=== PATIENT | female | born 1960 | race Caucasian/White ===

== ENCOUNTER 2017-04-14 06:41 | Day surgery (SDC) | payer OTHER ==
[~2017-04-14] VITALS: Ht 160 cm; Wt 96.6 kg
[~2017-04-14 06:41] MED LIST: BACTRIM DS1 TAB PO; DENIES CURRENT MEDS; LORTAB 1010 MG PO; ROCEPHIN1 G1 IJ
[2017-04-14] MEDS ORDERED: NORCO1 TA1 PO (09:21)
[2017-04-14 10:10] VITALS: BP 130/78
== END 2017-04-14 10:00 | disposition home or self-care (01) | DRG 745 ==
LOC: ORM 06:41
PROC: 0UDB7ZX Extraction of Endometrium, Via Natural or Artificial Opening, Diagnostic (ICD-10-PCS; principal; 2017-04-14)
PROC: 0UBC7ZX Excision of Cervix, Via Natural or Artificial Opening, Diagnostic (ICD-10-PCS; 2017-04-14)
DX: N92.1 Excessive and frequent menstruation with irregular cycle (principal); F17.210 Nicotine dependence, cigarettes, uncomplicated; N84.1 Polyp of cervix uteri; N93.8 Other specified abnormal uterine and vaginal bleeding; K08.109 Complete loss of teeth, unspecified cause, unspecified class; Z88.0 Allergy status to penicillin

== ENCOUNTER 2022-11-24 12:15 | Day surgery (SDC) | payer BC ==
[~2022-11-24] VITALS: Ht 160 cm; Wt 74.8 kg
[~2022-11-24 12:15] MED LIST changes: +ATORVASTATIN CA20 MG PO; +FARXIGA10 MG PO; +METFORMIN500 M2 PO; +NORCO1 TA1 PO; +RYBELSUS14 MG PO
[2022-11-24 14:52] VITALS: BP 145/72
== END 2022-11-24 15:00 | disposition home or self-care (01) | DRG 581 ==
LOC: ORM 12:15
PROVIDERS: ATTEND Surgery
PROC: 0JH63WZ Insertion of Totally Implantable Vascular Access Device into Chest Subcutaneous Tissue and Fascia, Percutaneous Approach (ICD-10-PCS; principal; 2022-11-24)
PROC: 02HV33Z Insertion of Infusion Device into Superior Vena Cava, Percutaneous Approach (ICD-10-PCS; 2022-11-24)
PROC: B518ZZA Fluoroscopy of Superior Vena Cava, Guidance (ICD-10-PCS; 2022-11-24)
DX: C50.411 Malignant neoplasm of upper-outer quadrant of right female breast (principal); Z17.1 Estrogen receptor negative status [ER-]

== ENCOUNTER 2023-03-04 13:51 | Emergency (ER) | payer BC ==
[~2023-03-04] VITALS: Ht 160 cm; Wt 75.7 kg
[2023-03-04] VITALS (19 sets, daily range): BP systolic 114–148; BP diastolic 65–91
[2023-03-04] MEDS ORDERED: GABAPENTIN100 MG PO (14:09)
[2023-03-04] MEDS ORDERED: DEXAMETHASON1 MG PO (14:10)
[2023-03-04 14:21] LABS: GFR FOR AFR.AMER. > 60 ML/MIN (>=60 (CALC)); GFR OTHER RACES > 60 ML/MIN (>=60 (CALC))
[2023-03-04 14:26] LABS: EOS% 0.5 % (0-8); IMMATURE GRANULOCYTES 0.5 % (0.0-5.0); MEAN CORPUSCULAR HGB 33.7 pG CALC (26.0-32.0); MEAN CORPUSCULAR HGB CONC 34.2 g/dL CAL (32.0-36.0); MONO% 18.6 % (2-13); NEUT# 0.72 thou/uL (2.00-7.15); NEUT% 32.4 % (42-76); RED BLOOD COUNT 3.65 mill/uL (4.20-5.60); RED CELL DISTRI WIDTH 15.8 % (11.5-15.5)
[2023-03-04 14:29] LABS: HEMOGLOBIN 12.3 g/dl (12.0-16.0)
[2023-03-04 14:30] LABS: MEAN CELL VOLUME 98.6 fL CALC (80.0-100.0)
[2023-03-04 14:34] LABS: BUN 21 mg/dL (8-23); BUN/CREATININE RATIO 31 (12-20 (CALC)); CHLORIDE 104 mmol/l (95-108); CREATININE 0.7 mg/dL (0.5-1.0); GFR FOR AFR.AMER. > 60 ML/MIN (>=60 (CALC)); GFR OTHER RACES > 60 ML/MIN (>=60 (CALC)); POTASSIUM 4.1 mmol/l (3.5-5.1); SODIUM 138 mmol/l (137-146); TOTAL PROTEIN 6.7 g/dL (6.3-8.2)
[2023-03-04 14:41] LABS: ALBUMIN 4.1 g/dL (3.2-5.0); ALKALINE PHOSPHATASE 60 u/l (38-126); ANION GAP 19 (6-22 (CALC)); BILIRUBIN, TOTAL 0.3 mg/dL (0.02-1.3); CARBON DIOXIDE 19 mmol/l (22-30); SGOT/AST 40 u/l (9-36)
[2023-03-04 14:50] LABS: ETHYL ALCOHOL 0 mg/dl (0-30)
== END 2023-03-04 19:35 | disposition left against medical advice (07) | DRG 313 ==
LOC: ED 13:51 → ED-I 17:10 → ED 19:35
PROVIDERS: Family Medicine
DX: R07.89 Other chest pain (principal); M54.6 Pain in thoracic spine; M54.50 Low back pain, unspecified; M25.551 Pain in right hip; E11.9 Type 2 diabetes mellitus without complications; C50.911 Malignant neoplasm of unspecified site of right female breast; I10 Essential (primary) hypertension; F17.200 Nicotine dependence, unspecified, uncomplicated; Z79.84 Long term (current) use of oral hypoglycemic drugs; Z53.29 Procedure and treatment not carried out because of patient's decision for other reasons; Z79.899 Other long term (current) drug therapy
CPT/HCPCS: Q9967

== ENCOUNTER 2023-03-11 08:41 | Observation (INO) | payer BC ==
[~2023-03-11] VITALS: Ht 160 cm; Wt 72.0 kg
[2023-03-11] VITALS (31 sets, daily range): BP systolic 118–161; BP diastolic 67–96
[~2023-03-11 08:41] MED LIST changes: +DEXAMETHASON1 MG PO; +GABAPENTIN100 MG PO
[2023-03-11] MEDS ORDERED: FAMOTIDINE20 M1 PO (09:26)
[2023-03-11] MEDS ORDERED: DEXAMETHASON1 MG PO (09:27)
[2023-03-11 10:10] LABS: BASO% 0.4 % (0-3); HEMOGLOBIN 11.9 g/dl (12.0-16.0); IMMATURE GRANULOCYTES 1.9 % (0.0-5.0); LYMPH% 1.7 % (15-41); MEAN CELL VOLUME 99.7 fL CALC (80.0-100.0); MEAN CORPUSCULAR HGB 33.9 pG CALC (26.0-32.0); MONO% 2.1 % (2-13); NEUT# 14.47 thou/uL (2.00-7.15); NEUT% 93.9 % (42-76); RED BLOOD COUNT 3.51 mill/uL (4.20-5.60); RED CELL DISTRI WIDTH 15.5 % (11.5-15.5)
[2023-03-11 10:16] LABS: ALBUMIN 3.6 g/dL (3.2-5.0); ALKALINE PHOSPHATASE 87 u/l (38-126); ANION GAP 17 (6-22 (CALC)); BUN 32 mg/dL (8-23); BUN/CREATININE RATIO 54 (12-20 (CALC)); CARBON DIOXIDE 20 mmol/l (22-30); CHLORIDE 101 mmol/l (95-108); CREATININE 0.6 mg/dL (0.5-1.0); GFR FOR AFR.AMER. > 60 ML/MIN (>=60 (CALC)); GFR OTHER RACES > 60 ML/MIN (>=60 (CALC)); POTASSIUM 4.6 mmol/l (3.5-5.1); SGOT/AST 34 u/l (9-36); SODIUM 133 mmol/l (137-146); TOTAL PROTEIN 5.8 g/dL (6.3-8.2)
[2023-03-11 10:24] LABS: BILIRUBIN, TOTAL 0.6 mg/dL (0.02-1.3)
[2023-03-11 11:53] LABS: URINE BILIRUBIN - DIPSTICK NEGATIVE (NEGATIVE); URINE BLOOD DIPSTICK NEGATIVE (NEGATIVE); URINE COLOR YELLOW; URINE GLUCOSE - DIPSTICK >=1000 mg/dL (NEGATIVE); URINE KETONE TRACE mg/dL (NEGATIVE); URINE LEUK ESTERASE NEGATIVE (NEGATIVE); URINE PH 5.5 (4.5-8.0); URINE PROTEIN - DIPSTICK NEGATIVE (NEG-TRACE); URINE UROBILINOGEN - DIPSTICK 0.2 E.U./dL (0.2)
[2023-03-11 11:55] LABS: URINE NITRITE - DIPSTICK NEGATIVE (Negative)
[2023-03-11] MEDS ORDERED: DOXORUBICIN IV (16:57)
[2023-03-11] MEDS ORDERED: CYCLOPHOSPHAMIDE XX (16:58)
[2023-03-12] VITALS (7 sets, daily range): BP systolic 125–142; BP diastolic 63–79
[2023-03-12 09:43] LABS: BASO% 0.1 % (0-3); HEMATOCRIT 29.9 % (37.0-47.0); HEMOGLOBIN 10.1 g/dl (12.0-16.0); IMMATURE GRANULOCYTES 0.4 % (0.0-5.0); LYMPH% 2.1 % (15-41); MEAN CORPUSCULAR HGB 33.8 pG CALC (26.0-32.0); MEAN CORPUSCULAR HGB CONC 33.8 g/dL CAL (32.0-36.0); MONO% 1.2 % (2-13); NEUT# 14.98 thou/uL (2.00-7.15); NEUT% 96.2 % (42-76); RED BLOOD COUNT 2.99 mill/uL (4.20-5.60); RED CELL DISTRI WIDTH 15.4 % (11.5-15.5)
[2023-03-12 09:53] LABS: ALBUMIN 2.9 g/dL (3.2-5.0); ALKALINE PHOSPHATASE 45 u/l (38-126); ANION GAP 8 (6-22 (CALC)); BUN 28 mg/dL (8-23); BUN/CREATININE RATIO 50 (12-20 (CALC)); CARBON DIOXIDE 21 mmol/l (22-30); CHLORIDE 107 mmol/l (95-108); CREATININE 0.6 mg/dL (0.5-1.0); GFR FOR AFR.AMER. > 60 ML/MIN (>=60 (CALC)); GFR OTHER RACES > 60 ML/MIN (>=60 (CALC)); MAGNESIUM 1.9 mg/dL (1.6-2.3); POTASSIUM 4.2 mmol/l (3.5-5.1); SGOT/AST 22 u/l (9-36); SODIUM 132 mmol/l (137-146); TOTAL PROTEIN 4.8 g/dL (6.3-8.2)
[2023-03-12 09:55] LABS: BILIRUBIN, TOTAL 0.3 mg/dL (0.02-1.3)
[2023-03-13 00:04] VITALS: BP 126/71
[2023-03-13 04:15] VITALS: BP 146/79
[2023-03-13 04:39] VITALS: BP 146/79
[2023-03-13 05:09] LABS: BASO% 0.3 % (0-3); HEMATOCRIT 30.7 % (37.0-47.0); HEMOGLOBIN 10.4 g/dl (12.0-16.0); IMMATURE GRANULOCYTES 0.2 % (0.0-5.0); LYMPH% 3.1 % (15-41); MEAN CORPUSCULAR HGB 34.2 pG CALC (26.0-32.0); MEAN CORPUSCULAR HGB CONC 33.9 g/dL CAL (32.0-36.0); MONO% 0.9 % (2-13); NEUT# 11.98 thou/uL (2.00-7.15); NEUT% 95.5 % (42-76); RED BLOOD COUNT 3.04 mill/uL (4.20-5.60); RED CELL DISTRI WIDTH 15.2 % (11.5-15.5)
[2023-03-13 05:19] LABS: ANION GAP 9 (6-22 (CALC)); BUN 33 mg/dL (8-23); BUN/CREATININE RATIO 61 (12-20 (CALC)); CARBON DIOXIDE 22 mmol/l (22-30); CHLORIDE 108 mmol/l (95-108); CREATININE 0.5 mg/dL (0.5-1.0); GFR FOR AFR.AMER. > 60 ML/MIN (>=60 (CALC)); GFR OTHER RACES > 60 ML/MIN (>=60 (CALC)); MAGNESIUM 1.9 mg/dL (1.6-2.3); POTASSIUM 3.9 mmol/l (3.5-5.1); SODIUM 135 mmol/l (137-146)
[2023-03-13 07:22] VITALS: BP 145/71
[2023-03-13] MEDS ORDERED: LEVEMIR100 UNIT SC (10:22)
== END 2023-03-13 12:05 | disposition home or self-care (01) | DRG 639 ==
LOC: ED 08:41 → ED-I 12:24 → ED 12:37 → MS2 12:38
PROVIDERS: Family Medicine; Internal Medicine; ADMIT Internal Medicine; ATTEND Internal Medicine
DX: E11.10 Type 2 diabetes mellitus with ketoacidosis without coma (principal); E11.00 Type 2 diabetes mellitus with hyperosmolarity without nonketotic hyperglycemic-hyperosmolar coma (NKHHC); E86.0 Dehydration; D72.829 Elevated white blood cell count, unspecified; T38.0X5A Adverse effect of glucocorticoids and synthetic analogues, initial encounter; K59.00 Constipation, unspecified; I10 Essential (primary) hypertension; E78.5 Hyperlipidemia, unspecified; C50.911 Malignant neoplasm of unspecified site of right female breast; F17.200 Nicotine dependence, unspecified, uncomplicated; Z92.21 Personal history of antineoplastic chemotherapy; Z79.84 Long term (current) use of oral hypoglycemic drugs; Z20.822 Contact with and (suspected) exposure to COVID-19
CPT/HCPCS: G0378; J0692; J1650

== ENCOUNTER 2023-04-01 09:58 | Inpatient (IN) | payer BC ==
[~2023-04-01] VITALS: Ht 160 cm; Wt 71.8 kg
[2023-04-01] VITALS (22 sets, daily range): BP systolic 113–154; BP diastolic 69–101
[~2023-04-01 09:58] MED LIST changes: +CYCLOPHOSPHAMIDE XX; +DOXORUBICIN IV; +FAMOTIDINE20 M1 PO; +LEVEMIR100 UNIT SC
[2023-04-01 10:25] LABS: IMMATURE GRANULOCYTES 0.6 % (0.0-5.0); MEAN CORPUSCULAR HGB 34.2 pG CALC (26.0-32.0); MEAN CORPUSCULAR HGB CONC 32.9 g/dL CAL (32.0-36.0); RED BLOOD COUNT 3.71 mill/uL (4.20-5.60); RED CELL DISTRI WIDTH 14.6 % (11.5-15.5)
[2023-04-01 10:30] LABS: HEMATOCRIT 38.6 % (37.0-47.0); HEMOGLOBIN 12.7 g/dl (12.0-16.0); MANUAL DIFFERENTIAL YES; PLATELET COUNT 233 thou/uL (130-400)
[2023-04-01 10:33] LABS: ANION GAP 18 (6-22 (CALC)); BILIRUBIN, TOTAL 0.3 mg/dL (0.02-1.3); BUN 23 mg/dL (8-23); BUN/CREATININE RATIO 60 (12-20 (CALC)); CARBON DIOXIDE 18 mmol/l (22-30); CHLORIDE 105 mmol/l (95-108); CREATININE 0.4 mg/dL (0.5-1.0); GFR FOR AFR.AMER. > 60 ML/MIN (>=60 (CALC)); GFR OTHER RACES > 60 ML/MIN (>=60 (CALC)); POTASSIUM 3.9 mmol/l (3.5-5.1); SODIUM 137 mmol/l (137-146)
[2023-04-01 10:34] LABS: ALBUMIN 3.9 g/dL (3.2-5.0); ALKALINE PHOSPHATASE 94 u/l (38-126); SGOT/AST 41 u/l (9-36); TOTAL PROTEIN 6.1 g/dL (6.3-8.2)
[2023-04-01 10:56] LABS: PLATELET ESTIMATE NORMAL
[2023-04-01 11:05] LABS: URINE BILIRUBIN - DIPSTICK NEGATIVE (NEGATIVE); URINE BLOOD DIPSTICK NEGATIVE (NEGATIVE); URINE COLOR YELLOW; URINE GLUCOSE - DIPSTICK >=1000 mg/dL (NEGATIVE); URINE KETONE TRACE mg/dL (NEGATIVE); URINE LEUK ESTERASE NEGATIVE (NEGATIVE); URINE NITRITE - DIPSTICK NEGATIVE (Negative); URINE PH 5.5 (4.5-8.0); URINE PROTEIN - DIPSTICK NEGATIVE (NEG-TRACE); URINE UROBILINOGEN - DIPSTICK 0.2 E.U./dL (0.2)
[2023-04-02] VITALS (9 sets, daily range): BP systolic 100–140; BP diastolic 64–99
[2023-04-02 05:26] LABS: BASO% 0.2 % (0-3); EOS% 0.1 % (0-8); HEMATOCRIT 32.7 % (37.0-47.0); IMMATURE GRANULOCYTES 0.8 % (0.0-5.0); LYMPH% 3.7 % (15-41); MEAN CELL VOLUME 105.5 fL CALC (80.0-100.0); MEAN CORPUSCULAR HGB 34.2 pG CALC (26.0-32.0); MEAN CORPUSCULAR HGB CONC 32.4 g/dL CAL (32.0-36.0); MONO% 2.3 % (2-13); NEUT# 13.98 thou/uL (2.00-7.15); NEUT% 92.9 % (42-76); RED BLOOD COUNT 3.1 mill/uL (4.20-5.60); RED CELL DISTRI WIDTH 14.5 % (11.5-15.5)
[2023-04-02 05:27] LABS: ALKALINE PHOSPHATASE 59 u/l (38-126); BILIRUBIN, TOTAL 0.2 mg/dL (0.02-1.3); BUN 24 mg/dL (8-23); BUN/CREATININE RATIO 65 (12-20 (CALC)); CHLORIDE 108 mmol/l (95-108); CREATININE 0.4 mg/dL (0.5-1.0); GFR FOR AFR.AMER. > 60 ML/MIN (>=60 (CALC)); GFR OTHER RACES > 60 ML/MIN (>=60 (CALC)); POTASSIUM 3.5 mmol/l (3.5-5.1); SGOT/AST 22 u/l (9-36); SODIUM 137 mmol/l (137-146)
[2023-04-02 05:28] LABS: ALBUMIN 2.9 g/dL (3.2-5.0); ANION GAP 9 (6-22 (CALC)); CARBON DIOXIDE 24 mmol/l (22-30); TOTAL PROTEIN 4.6 g/dL (6.3-8.2)
[2023-04-02 05:30] LABS: HEMOGLOBIN 10.6 g/dl (12.0-16.0)
[2023-04-03] VITALS: BP 123/70
[2023-04-03 00:10] VITALS: BP 123/70
[2023-04-03 04:13] VITALS: BP 113/73
[2023-04-03 05:10] LABS: BASO% 0.1 % (0-3); HEMATOCRIT 30.2 % (37.0-47.0); HEMOGLOBIN 9.7 g/dl (12.0-16.0); IMMATURE GRANULOCYTES 0.4 % (0.0-5.0); LYMPH% 3.5 % (15-41); MEAN CELL VOLUME 105.2 fL CALC (80.0-100.0); MEAN CORPUSCULAR HGB 33.8 pG CALC (26.0-32.0); MEAN CORPUSCULAR HGB CONC 32.1 g/dL CAL (32.0-36.0); MONO% 1.4 % (2-13); NEUT# 7.35 thou/uL (2.00-7.15); NEUT% 94.6 % (42-76); RED BLOOD COUNT 2.87 mill/uL (4.20-5.60); RED CELL DISTRI WIDTH 14.2 % (11.5-15.5)
[2023-04-03 05:13] LABS: ANION GAP 7 (6-22 (CALC)); BUN 17 mg/dL (8-23); BUN/CREATININE RATIO 56 (12-20 (CALC)); CARBON DIOXIDE 23 mmol/l (22-30); CHLORIDE 109 mmol/l (95-108); CREATININE 0.3 mg/dL (0.5-1.0); GFR FOR AFR.AMER. > 60 ML/MIN (>=60 (CALC)); GFR OTHER RACES > 60 ML/MIN (>=60 (CALC)); MAGNESIUM 1.8 mg/dL (1.6-2.3); POTASSIUM 3.2 mmol/l (3.5-5.1); SODIUM 136 mmol/l (137-146)
[2023-04-03 05:19] VITALS: BP 113/73
[2023-04-03 06:27] VITALS: BP 123/74
== END 2023-04-03 12:05 | disposition home or self-care (01) | DRG 641 ==
LOC: ED 09:58 → ED-I 11:20 → ED 11:53 → MS2 11:54
PROVIDERS: Family Medicine; ADMIT Internal Medicine; ATTEND Internal Medicine
DX: E86.0 Dehydration (principal); R65.10 Systemic inflammatory response syndrome (SIRS) of non-infectious origin without acute organ dysfunction; D72.829 Elevated white blood cell count, unspecified; T38.0X5A Adverse effect of glucocorticoids and synthetic analogues, initial encounter; E87.20 Acidosis, unspecified; E11.65 Type 2 diabetes mellitus with hyperglycemia; I10 Essential (primary) hypertension; E11.42 Type 2 diabetes mellitus with diabetic polyneuropathy; C50.911 Malignant neoplasm of unspecified site of right female breast; E78.5 Hyperlipidemia, unspecified; F17.200 Nicotine dependence, unspecified, uncomplicated; Z79.899 Other long term (current) drug therapy; Z79.84 Long term (current) use of oral hypoglycemic drugs; Z79.4 Long term (current) use of insulin; Z91.81 History of falling; Z20.822 Contact with and (suspected) exposure to COVID-19
CPT/HCPCS: J1650